=== PATIENT | female | born 1985 | race Caucasian/White ===

== ENCOUNTER 2024-08-23 19:43 | Emergency (ER) | payer BC, SELFPAY ==
--- OUTSIDE RECORDS SUMMARY | 2024-08-23 19:46 | XMS_ITS | Continuity of Care Document ---
Author Organization [facility] Address [address] [address] [place] [address] Phone Care Team Providers Care Enrollment Services Dean Name Role Phone No Information Unavailable Unavailable Medications Medication Instructions Dosage Effective Dates (start - stop) Status Comments IRON (unknown strength) take 1 by Oral route every day Not Available - Active Multivitamin Gummies 200 mcg chewable tablet take 4 gummies by oral route every day - Active Procedures Procedure Date New Level 4 Advance Directives Directive Yes / No Effective Date File Name No Information Encounters Encounter Description Practice Location Reason(s) For Visit Diagnoses Date Provider Providers Copied on Encounter [facility], [address] [address], [place], [id number], [place] tel:[phone] No Information 3 No Information New Level 4 [facility], [address] [address], [facility] [place], [id number], [place] tel:[phone] [facility] GI Symptoms or Concerns (chief complaint) Omental infarctionLoos e stools 3 Jesus Odom. [address] [facility], [address], [place], [place], [id number], [place]. tel:[phone] Referring Provider: Sandra Peñaloza [facility], [address] [place] [address], [address]. tel:[phone] [facility], [address] [address], [place], [id number], [place] tel:[phone] [facility] No Information Dennis Rose. [address] [facility], [address] [address], [place], [place], [id number], . tel:[phone] Family History Family Member Type Diagnosis Age At Onset Father Problem (finding) Diverticular disease Father Problem (finding) Thyroid disorder Immunizations Vaccine Date Status Comments SARS-COV-2 (COVID-19) vaccin e, mRNA, spike protein, LNP, bivalent, preservative free, 30 mcg/0.3 mL dose, isidra-sucrose formulation administered Note: [facility] bi-direct ional interface ; Source: Other Registry SARS-COV-2 (COVID-19) vaccin e, mRNA, spike protein, LNP, preservative free, 30 mcg/0.3mL dose administered Note: [facility] bi-direct ional interface ; Source: Other Registry SARS-COV-2 (COVID-19) vaccin e, mRNA, spike protein, LNP, preservative free, 30 mcg/0.3mL dose administered Note: [facility] bi-direct ional interface ; Source: Other Registry SARS-COV-2 (COVID-19) vaccin e, mRNA, spike protein, LNP, preservative free, 30 mcg/0.3mL dose administered Note: [facility] bi-direct ional interface ; Source: Other Registry tetanus toxoid, reduced diphtheria toxoid, and acellular pertussis vaccine, adsorbed administered Note: [facility] b i-directional interface ; Source: Other Registry diphtheria, tetanus toxoids and acellular pertussis vaccine administered Note: [facility] b i-directional interface ; Source: Other Registry Haemophilus influenzae type b vaccine, PRP-T conjugate administered Note: [facility] bi-d irectional interface ; Source: Other Registry diphtheria, tetanus toxoids and pertussis vaccine administered Note: [facility] bi-direct ional interface ; Source: Other Registry measles, mumps and rubella v irus vaccine administered Note: [facility] bi-direct ional interface ; Source: Other Registry Payers Payer name Insurance type Covered republican ID Brianna maria(s) No Information Social History Type Description Quantity Date Captured Comments Sex Female Smoking Status No Information Chief Complaint And Reason For Visit No Information Reason For Referral Reason For Referral No Information Plan Of Treatment Date Type Action Status Referral Ordered: Stool Test Panel, Comprehensive Appointment date/timeframe: First Available ordered Referral Ordered: referred to Surgery NAHOMI Appointment date/timeframe: NAHOMI ordered Referral Ordered: Calprotectin, Fecal Appointment date/timeframe: First Available ordered History Of Present Illness Encounter Date Complaint History Of Prese nt Illness GI Symptoms or Concerns Patient is a 37-year-old female who has been referred by Sandra Singh CNP for left lower quadrant abdominal pain and abnormal CT. she states that her last menstrual cycle started around the 07 of March. She does have some pain associated with this. Therefore when her left lower quadrant pain is somewhat difficult for her to identify. She does remember hitting her left lower quadrant on a washing machine. Because she had her menses at the time she is unsure of whether that caused the left lower quadrant pain that she is currently having. She states that the end of last week she started having some very focal left lower quadrant pain. She could feel it at night and when walking. Around the same time she started having some looser stools. This is unusual for her. These have been occurring over the last month and not necessarily over the last week. This has been off and on. She has no nocturnal stools. The stools are not more frequent than usual. They occur 2-3 times per day. They are just looser. She is no blood in the stool or black stool. She may possibly have a mild. Improvement in her abdominal pain with bowel movements although she is not positive about this. She does state that it is worse with walking or bouncing. She believes that this symptoms are potentially improving. She is never had any fevers or chills. For this pain she was initially seen March 16, 2023 at urgent care. This note is available to me and was reviewed. She did have a urinalysis that was normal. A Chem 8 which was normal. A CBC that was normal. She was referred for a CT scan that was done on March 17, 2023. This shows a small ovoid inflammatory change measuring 2 x 1 centimeters with no significant diverticulosis or bowel wall thickening suggesting an omental infarct. Remaining exam was within normal limits. She was referred here for these symptoms. Past medical history is positive for anemia depression and vaginismus. No reported surgeries. Family history. Father had diverticular disease and thyroid disorder. Mother has had brain aneurysm and stroke. Sisters are healthy. Social history she is not and has no children. She is a nonsmoker nondrinker. 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 Medications multivitamin daily. Valacyclovir as needed. Functional Status Date Functional Assessmen t No Information Instructions Date Instruction Additional Infor mation No Information Assessments Type Assessment Date No Information Patient Care Teams Name Effective Dates (start - stop) Status Members No Information
--- OUTSIDE RECORDS SUMMARY | 2024-08-23 19:46 | XMS_ITS | Clinical Summary ---
Author Organization [facility] Address [place], [place] [address] Care Team Providers Care Jailer Chief Name Role Phone Kimmie Zapata MD Primary Care Provide r Allergies Active Allergy Reactions Criticality Noted Date Comments Levonorgestrel Erythema 01/29/2021 Facial redness Medications multivitamin (MVI) tablet Take 1 tablet by mouth once daily. 0 9 Active ferrous sulfate, 65 mg elemental, tablet Take 325 mg by mouth once daily. 3 Active valACYclovir (VALTREX) 1 gram tabletIndicatio ns:HSV infection Take 2 tablets by mouth immediately and then two more tablets by mouth 12 hours later. 4 Tablet 6 4 Active Active Problems Problem Noted Date Diagnosed Date Omental infarction 10/06/2023 Epiploic appendagitis 09/03/2023 Chronic abdominal pain 03/17/2023 Costochondritis 03/17/2023 Panic disorder 03/17/2023 Vaginospasm 03/17/2023 Adjustment disorder with anxiety 10/16/2018 Positive KYLE (antinuclear antibody) 01/11/2018 Overview (01/11/2018): December 2017: with high titer. Referring to Post Splitter. 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 Office Visit [facility] [address] [place] [id number] Mulugeta Smith NP Leg Pain/problem 08/23/2024 Travel 08/23/2024 Nurse Triage [facility] [address] [place] [address] Kimmie Zapata MD Leg Pain/problem 07/20/2024 Refill [facility] [address] [place] [address] Kimmie Zapata MD Refill Request 06/26/2024 5:35 PM MIXER DRIVER Office Visit [facility] [address] [place] [id number] Son Alvarez PA Cyst 06/26/2024 Travel from Last 3 Months Immunizations Name Administration Dates Next Due COVID-19 vaccine ([employer] NTech 30mcg/0.3mL) 12YO+ BIVALENT PF, MDV 2022 DTP 11/01/1988 DTaP 11/15/1992 HIB PRP-T (ActHIB,Hiberix) 11/01/1988 Influenza, IIV4 2023 MMR 08/01/1988 Oral Polio Vaccine 11/01/1988 Td, Preservative Free (age >= 7 Years) 7 Tdap 07/22/2019 Family History Medical History Relation Name Comments Diabetes Father Other Maternal Grandfather guillai n barre Arthritis Maternal Grandmother Osteoporosis Maternal Grandmother Brain Aneurysm Mother Other Paternal Grandfather guillai n barre Relation Name Status Comments Father Maternal Grandfather Maternal Grandmother Mother Paternal Grandfather Social History Tobacco Use Types Packs/Day Years Used Date Smoking Tobacco: Never Smokeless Tobacco: Never Tobacco Cessation:Counseling Given: Yes Alcohol Use Standard Drinks/Week Comments Yes 0 (1 standard drink = 0.6 oz pur e alcohol) 3-4 times year PHQ-2 Answer Date Recorded PHQ-2 TOTAL SCORE 2 12/17/2023 Social Connections Answer Date Recorded Do you often feel lonely or isolated from those around you? 0 08/23/2024 Financial Resource Strain Answer Date R ecorded Difficulty of Paying Living Expenses 3 08/23/2024 Difficulty of Paying Living Expenses Not on file 08/23/2024 Food Insecurity Answer Date Recorded Do you worry your food will run out before you are able to buy more? 1 08/23/2024 Transportation Needs Answer Date Record ed Does lack of transportation keep you from medica l appointments? 1 08/23/2024 Does lack of transportation keep you from work, meetings or getting things that you need? 1 08/23/2024 Housing Stability Answer Date Recorded What is your housing situation today? 1 08/23/2024 Utilities Answer Date Recorded Do you have trouble paying f or utilities (for example, heat, electricity, water, phone)? 1 08/23/2024 Comments No Sex and Gender Information Value Date Recorded Sex Assigned at Female 11/02/2020 2:17 PM CDT Legal Sex Female 5:27 AM MIXER DRIVER Gender Identity Female 11/02/2020 2:17 PM CDT Sexual Orientation Don't know 11/02/2020 2: 17 PM CDT Obstetrics History Para Term AB IAB SAB Ectopic Multiple Livin g Live Births 0 0 0 0 0 0 0 0 0 0 0 Last Filed Vital Signs Vital Sign Reading Time Taken Comments Blood Pressure 132/61 08/23/2024 6:46 PM MIXER DRIVER Pulse 74 08/23/2024 6:46 PM MIXER DRIVER Temperature 37.7 C (99.9 F) 08/23/2024 6:46 PM MIXER DRIVER Respiratory Rate 16 08/23/2024 6:46 PM MIXER DRIVER Oxygen Saturation 97% 08/23/2024 6:46 PM MIXER DRIVER Inhaled Oxygen Concentration - - Weight 97.5 kg (215 lb) 08/23/2024 6:46 PM MIXER DRIVER Height 175.3 cm (5' 9) 06/26/2024 5:51 PM MIXER DRIVER Body Mass Index 31.75 06/26/2024 5:51 PM MIXER DRIVER Plan of Treatment Health Maintenance Due Date Last Done Comments HIV for age 15-65 2002 Hepatitis C screening for age 18-79 2005 Pap test for age 21-65 2008 Influenza for age 9-49 03/28/2024 2023 Depression screening for age 12+ 12/16/2024 12/17/2023, 05/28/2022, 11/02/2020, Additional history exists BMI (ht and wt on same day) for age 18+ 06/26/2025 06/26/2024, 12/17/2023, 07/17/2023, Additional history exists Tetanus booster 07/22/2029 07/22/2019, 2007 Tdap Completed 07/22/2019 COVID-19 vaccine series Completed 04/29/20 24, 2023, 2022, Additional history exists Pneumococcal series for age 6-49 Aged Out No longer eligible based on patient's age to complete this topic Insurance [facility] Care Teams Jailer Chief Relationship Specialty Start Date End Date Kimmie Zapata MD [address] [place], [place] [id number] PCP - General 12/16/05
[2024-08-23 20:33] VITALS: BP 146/72; PULSE 78; RESP 18; TEMP 36.1; O2SAT 98; BMI 31.6
[2024-08-23 20:52] LABS: Appearance Urine Slightly Cloudy (Clear); Bilirubin Urine Negative (Negative); Blood Urine 2+ (Negative); Color Urine Dark yellow (Yellow); Glucose Urine Negative (Negative); Ketones Urine Negative (Negative); Leukocyte Esterase Urine Trace (Negative); Nitrite Urine Negative (Negative); Protein Urine Negative (Negative); Specific Gravity Urine >= 1.030 (1.000-1.030); Urobilinogen Urine 0.2 (0.2-1.0); pH Urine 5.5 (5.0-8.5)
[2024-08-23 20:53] LABS: Bacteria Urine Few; WBC Urine 0-2 (0-5)
--- NOTE | 2024-08-23 21:30 | ED.GENADULT ---
HPI - General Adult General Date Seen: 08/23/24 Chief complaint: Lower Extremity Swelling Stated complaint: CHF and venous insufficiency Time Seen by Provider: 08/23/24 21:30 Source: patient and RN notes reviewed Mode of arrival: ambulatory Limitations: no limitations History of Present Illness HPI narrative: Patient is a very pleasant 39-year-old female who was urged to come to the emergency room tonight by nursing triage for ankle swelling that started in the fall in April. Patient noted at that time she seemed to have more swelling in her ankles and has continued any been progressed to the point where she feels like her socks dig into her legs. She notes that they are painful at times. She has not had any calf tenderness shortness of breath or history of DVT. She was initially evaluated by her primary in the fall but really had no further studies done at that time. She has not had any unusual fevers or chills. She has no history of autoimmune disorders. She has been dealing with some mental health challenges and is going to be seeing her physician soon. She is vegetarian but does drink milk and is not be we can. He does have a history of iron deficiency anemia. Related Data Previous Rx's ?Medication ?Instructions ?Recorded furosemide 20 mg tablet (Lasix) 20 mg PO DAILY PRN edema #10 tabs 08/23/24 Allergies Allergy/AdvReac Type Severity Reaction Status Date / Time levonorgestrel (From Plan B) AdvReac Severe Flushing Verified 08/23/24 20:32 Review of Systems Status of ROS: Reports: 10 or more systems reviewed and unremarkable except as noted in History and below Const: Denies: fever or chills Eyes: Denies: change in vision ENMT: Denies: neck pain, nasal discharge or nasal congestion Cardio: Denies: chest pain Resp: Denies: cough GI: Denies: abdominal pain, nausea, vomiting or diarrhea : Denies: painful urination or urinary frequency Musculo: Denies: back pain or neck pain Integ/Breast: Reports: redness, skin pain, skin tenderness and skin swelling Neuro: Denies: headache PFSH PFSH Social History Non-prescribed substance use: denies use Exam Narrative: Exam Narrative: Alert and oriented. Very pleasant woman. Accompanied by her significant other is very loving and supportive. EOM is full. Neck is supple without lymphadenopathy. Heart with regular rate and rhythm and lungs are clear. Abdomen soft. Examination of her lower extremities show well-demarcated erythema. At this site Garcia the erythema completely resolves. If her legs are cold to the touch right now. They are painful with palpation. I do not note any nodules. The erythema is dark and even slightly purplish in areas. These are absent on other areas of the body . Const: Vital Signs, click to edit/add: Vital Signs - 24 hr 08/23/24 20:33 Temperature 97.0 F L Pulse Rate [Right Pulse Oximeter] 78 Respiratory Rate 18 Blood Pressure [Ri ght Upper Arm] 146/72 H Pulse Oximetry 98 Oxygen Delivery Me thod Room Air Documenting provider has reviewed patient's vital signs: yes Course Course ED Course: Differential diagnosis is broad. A 1 thought is erythema nodosum but this area is well demarcated at the sock line. Further there is no similar findings on the other areas of the body. Urinalysis that was collected early shows no evidence of protein to suggest a vasculitis. This does not appear to be a cellulitis as it is not warm to the touch and again, appears to be well demarcated. I have offered to do labs tonight including a CBC, comprehensive panel, CRP, sed rate, TSH magnesium and vitamin-D. Vitamin-D is secondary to patient's vegetarian status as well as the edema she is complaining about. I have placed a blanket over her legs to warm this area up to see if appearance changes. Reevaluation(s) Reevaluation #1: Legs markedly improved in collar after having warmed them up. I recognize only scant peripheral edema. Vital Signs Vital signs: Initial Vital Signs Temperature 97.0 F L 08/23/24 20:33 Temperature Source Temporal Artery Scan 08/23/24 20:33 Pulse Rate 78 08/23/24 20:33 Pulse Rhythm Regular 08/23/24 20:33 Pulse Strength 3+ Normal 08/23/24 20:33 Respiratory Rate 18 08/23/24 20:33 Blood Pressure 146/72 H 08/23/24 20:33 Blood Pressure Mean 96 08/23/24 20:33 Blood Pressure Position Sitting 08/23/24 20:33 Pulse Oximetry 98 08/23/24 20:33 Oxygen Delivery Method Room Air 08/23/24 20:33 Vital Signs Temperature 97.0 F L 08/23/24 20:33 Pulse Rate 78 08/23/24 20:33 Respiratory Rate 18 08/23/24 20:33 Blood Pressure 146/72 H 08/23/24 20:33 Pulse Oximetry 98 08/23/24 20:33 Oxygen Delivery Method Room Air 08/23/24 20:33 Temperature 97.0 F L 08/23/24 20:33 Pulse Rate 78 08/23/24 20:33 Respiratory Rate 18 08/23/24 20:33 Blood Pressure 146/72 H 08/23/24 20:33 Pulse Oximetry 98 08/23/24 20:33 Oxygen Delivery Method Room Air 08/23/24 20:33 Medical Decision Making MDM Narrative Medical decision making narrative: 1. Pedal edema-no evidence of protein urea, elevated sed rate or CRP to indicate we are dealing with a vasculitis. Appearance of the lower leg skin was markedly improved after warming them up. I do not think this is erythema nodosum given the well-demarcated area at the ankles where the sock line as. At this time reassurance and recommend follow-up with primary MD. will give Lasix 20 mg p.o. p.r.n. in the event that she is wanting to try to eliminate some of the fluids. Recommend not doing this every day. Also spoke about using compression stockings and trying to elevate legs as much as possible. Do not note that there is any evidence of heart failure as she has no murmur or exercise intolerance. No evidence of vitamin-D deficiency or any me a as she is a vegetarian. 2. Disposition-home at this time. Patient feels comfortable going home. Recommend returning as needed for worsening symptoms. Lab Data Lab results reviewed: Yes I reviewed the patient's lab results Labs: Lab Results 08/23/24 08/23/24 Range/Units 20:49 22:00 WBC 5.08 (4.50-11.00) K/uL RBC 4.66 (4.00-5.20) m/uL Hgb 12.7 (12.0-16.0) gm/dL Hct 39.9 (33.0-51.0) % MCV 86 (80-100) fL MCH 27 (26-34) pg MCHC 32 (32-36) gm/dL RDW Coeff of Brad 13.7 (11.5-15.5) % Plt Count 271 (140-440) K/uL Neut % (Auto) 47.0 (42.0-72.0) % Lymph % (Auto) 38.2 (20-44) % Preston % (Auto) 7.3 (0.0-11.0) % Eos % (Auto) 6.9 (0.0-7.0) % Baso % (Auto) 0.4 (0.0-3.0) % Neut # (Auto) 2.39 (1.7-7.0) K/uL Lymph # (Auto) 1.94 (0.90-2.90) K/uL Preston # (Auto) 0.40 (0.00-0.90) K/UL Eos # (Auto) 0.35 (0.00-0.50) K/uL Baso # (Auto) 0.02 (0.00-0.30) K/uL Abs Immat Gran (auto) 0.01 (0.00-0.30) K/uL Imm/Tot Granulo (auto) 0.2 % ESR 2 (2-20) mm/hr Sodium 139 (135-149) mmol/L Potassium 4.0 (3.6-5.1) mmol/L Chloride 106 (96-114) mmol/L Carbon Dioxide 22 (20-32) mmol/L Anion Gap 11 (7-15) mEq/L BUN 14 (5-24) mg/dL Creatinine 0.7 (0.5-1.5) mg/dL Estimated Creat Clear 118.99 Estimated GFR 114 ml/min Glucose 104 (60-115) mg/dL Calcium 9.4 (8.4-10.6) mg/dL Magnesium 2.3 (1.5-2.6) mg/dL Total Bilirubin 0.2 (0.1-1.5) mg/dL AST 20 (12-35) U/L ALT 18 (4-35) U/L Alkaline Phosphatase 50 (40-150) U/L C-Reactive Protein < 0.5 L (0.5-1.0) mg/dL Total Protein 7.1 (6.0-8.3) g/dL Albumin 4.4 (3.3-5.0) g/dL 25-OH Vitamin D Total 43 (30-80) ng/mL Urine Color Dark yellow (Yellow) Urine Appearance Slightly Cloudy A (Clear) Urine pH 5.5 (5.0-8.5) Ur Specific Tryon >= 1.030 (1.000-1.030) Urine Protein Negative (Negative) Urine Glucose (UA) Negative (Negative) Urine Ketones Negative (Negative) Urine Blood 2+ A (Negative) Urine Nitrite Negative (Negative) Urine Bilirubin Negative (Negative) Urine Urobilinogen 0.2 (0.2-1.0) Ur Leukocyte Esterase Trace A (Negative) Urine RBC 2-5 A (0-2) Urine WBC 0-2 (0-5) Ur Squamous Epith Cells None (None-Few) Urine Bacteria Few A (None) Discharge Plan Discharge Clinical Impression: Pedal edema Patient Disposition: Home, Self-Care Condition: Unchanged Additional Instructions: Lasix is a diuretic that may be used as needed if you notice excessive edema. I recommend not using this daily but only when needed. Recommend using support stockings that you can order from [employer]. Try to raise her legs up at the end of the day. Try to be active while at work. 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 Follow-up at your clinic for recheck. Return to the emergency room as needed. Activity Level: No Restrictions Discharge Diet: Regular Prescriptions: New furosemide [Lasix] 20 mg tablet 20 mg PO DAILY PRN (Reason: edema) Qty: 10 0RF Follow Up/Referrals: Kimmie Zapata MD [Primary Care Provider] - Stand Alone Forms: [employer] Info Instructions
[2024-08-23 22:17] LABS: Basophils Absolute Auto 0.02 K/uL (0.00-0.30); Basophils Percent Auto 0.4 % (0.0-3.0); Eosinophils Absolute Auto 0.35 K/uL (0.00-0.50); Eosinophils Percent Auto 6.9 % (0.0-7.0); Hematocrit 39.9 % (33.0-51.0); Hemoglobin* 12.7 gm/dL (12.0-16.0); Immature Granulocytes Abs Auto 0.01 K/uL (0.00-0.30); Immature Granulocytes Pct Auto 0.2 %; Lymphocytes Absolute Auto 1.94 K/uL (0.90-2.90); Lymphocytes Percent Auto 38.2 % (20-44); Mean Corpuscular HGB Conc 32 gm/dL (32-36); Mean Corpuscular Hemoglobin 27 pg (26-34); Mean Corpuscular Volume 86 fL (80-100); Monocytes Percent Auto 7.3 % (0.0-11.0); Neutrophils Absolute Auto 2.39 K/uL (1.7-7.0); Platelet Count* 271 K/uL (140-440); RDW Coefficient of Variation % 13.7 % (11.5-15.5); Red Blood Count 4.66 m/uL (4.00-5.20); White Blood Count* 5.08 K/uL (4.50-11.00)
[2024-08-23 22:19] LABS: Slide Review Reflex No
[2024-08-23 22:20] LABS: Albumin* 4.4 g/dL (3.3-5.0); Chloride* 106 mmol/L (96-114)
[2024-08-23 22:21] LABS: Sodium* 139 mmol/L (135-149)
[2024-08-23 22:23] LABS: Bilirubin Total* 0.2 mg/dL (0.1-1.5); Creatinine* 0.7 mg/dL (0.5-1.5); Est. Creatinine Clearance* 118.99; Estimated Glomerular Filt Rate 114 ml/min
[2024-08-23 22:24] LABS: Alanine Aminotransferase* 18 U/L (4-35); Alkaline Phosphatase* 50 U/L (40-150); Anion Gap 11 mEq/L (7-15); Aspartate Amino Transferase* 20 U/L (12-35); Blood Urea Nitrogen* 14 mg/dL (5-24); Calcium* 9.4 mg/dL (8.4-10.6); Carbon Dioxide* 22 mmol/L (20-32); Glucose* 104 mg/dL (60-115); Magnesium* 2.3 mg/dL (1.5-2.6); Total Protein* 7.1 g/dL (6.0-8.3)
[2024-08-23 22:28] LABS: C Reactive Protein* < 0.5 mg/dL (0.5-1.0)
[2024-08-23 22:53] LABS: Vitamin D 25 Hydroxy* 43 ng/mL (30-80)
[2024-08-23 23:04] LABS: Erythrocyte SedimentationRate* 2 mm/hr (2-20)
== END 2024-08-23 23:29 | disposition home or self-care (01) ==
PROVIDERS: Emergency Provider Family Medicine; PCP Family Medicine
DX: R60.0 Localized edema (principal)
CPT/HCPCS: 36415; 80053; 81001; 82306; 83735; 84443; 85025; 85651; 86140; 87086; 99283; 99284